=== PATIENT | female | born 1975 | race American Indian/Alaskan Native ===

== ENCOUNTER 2021-02-01 09:07 | Emergency (ER) | payer SELFPAY ==
[2021-02-01] MEDS ORDERED: IBUPROFEN 800 MG TAB PO ONE (09:24)
--- NOTE | 2021-02-01 09:24 | Emergency Department Report ---
- General Chief Complaint: Fever Stated Complaint: COUGH/BODY ACHES Time Seen by Provider: 02/01/21 09:19 Source: patient Mode of arrival: Ambulatory Limitations: No Limitations - History of Present Illness Initial Comments: 45-year-old female with a past medical history of diabetes and hypertension presents to the ER today with complaints of flulike symptoms. Patient states his symptoms started 3 days ago. She reports fever, highest measured temperature was 101.6, cough and generalized body aches as well as rhinorrhea nasal congestion. She states that she has been taking Tylenol for the fever. She last took Tylenol yesterday. She also took Mucinex today to help the cough. She states when the cough is bad she feels like she cannot catch her breath but otherwise no shortness of breath, wheezing, or chest pain. She states that she has been around her grandkids who had a cold this past weekend. She denies any GI or symptoms. She denies any heart disease or lung disease or tobacco use. MD Complaint: fever, cough, rhinorrhea, nasal congestion -: Gradual, days(s) (3) - Related Data Home Medications Medication Instructions Recorded Confirmed Last Taken Lisinopril/Hydrochlorothiazide 1 tab PO DAILY 08/18/17 08/18/17 08/17/17 [Zestoretic 20-25 mg] Previous Rx's Medication Instructions Recorded Last Taken Type Albuterol Mdi (or & Nicu Only) 2 puff IH QID PRN #8.5 gram 02/01/21 Unknown Rx [ProAir HFA Inhaler] Azithromycin [Zithromax Z-JANY] 250 mg PO DAILY #1 pack 02/01/21 Unknown Rx Benzonatate [Tessalon Perles] 100 mg PO Q8HR PRN #30 capsule 02/01/21 Unknown Rx Ibuprofen [Motrin] 600 mg PO Q8H PRN #30 tablet 02/01/21 Unknown Rx Allergies Allergy/AdvReac Type Severity Reaction Status Date / Time No Known Allergies Allergy Verified 02/01/21 09:14 ED Review of Systems ROS: Stated complaint: COUGH/BODY ACHES Other details as noted in HPI Comment: All other systems reviewed and negative Constitutional: fever ENT: congestion, other (Rhinorrhea). denies: ear pain, throat pain Respiratory: cough. denies: shortness of breath, SOB with exertion, SOB at rest, wheezing Cardiovascular: denies: chest pain Genitourinary: denies: urgency, dysuria, discharge Musculoskeletal: myalgia. denies: back pain, joint swelling, arthralgia Skin: denies: rash, change in color, change in hair/nails Neurological: denies: headache, weakness, numbness, paresthesias, confusion, abnormal gait, vertigo Psychiatric: denies: anxiety, depression, auditory hallucinations, visual hallucinations, homicidal thoughts, suicidal thoughts Hematological/Lymphatic: denies: easy bleeding, easy bruising ED Past Medical Hx - Past Medical History Hx Hypertension: Yes Hx Diabetes: Yes - Surgical History Past Surgical History?: No - Social History Smoking Status: Never Smoker Substance Use Type: None - Medications Home Medications: Home Medications Medication Instructions Recorded Confirmed Last Taken Type Lisinopril/Hydrochlorothiazide 1 tab PO DAILY 08/18/17 08/18/17 08/17/17 History [Zestoretic 20-25 mg] Albuterol Mdi (or & Nicu Only) 2 puff IH QID PRN #8.5 gram 02/01/21 Unknown Rx [ProAir HFA Inhaler] Azithromycin [Zithromax Z-JANY] 250 mg PO DAILY #1 pack 02/01/21 Unknown Rx Benzonatate [Tessalon Perles] 100 mg PO Q8HR PRN #30 capsule 02/01/21 Unknown Rx Ibuprofen [Motrin] 600 mg PO Q8H PRN #30 tablet 02/01/21 Unknown Rx ED Physical Exam - General Limitations: No Limitations General appearance: alert, in no apparent distress - Head Head exam: Present: atraumatic, normocephalic, normal inspection - Eye Eye exam: Present: normal appearance, PERRL, EOMI Pupils: Present: normal accommodation - ENT ENT exam: Present: normal exam, mucous membranes moist - Expanded ENT Exam Expanded TM/Canal exam: Effusion: Right TM, Left TM Mouth exam: Present: normal external inspection Throat exam: Positive: normal inspection - Neck Neck exam: Present: normal inspection, full ROM. Absent: meningismus, lymphadenopathy - Respiratory Respiratory exam: Present: normal lung sounds bilaterally. Absent: respiratory distress - Cardiovascular Cardiovascular Exam: Present: regular rate, normal rhythm, normal heart sounds - GI/Abdominal GI/Abdominal exam: Present: soft. Absent: distended, tenderness, guarding, rebound - Back Exam Back exam: Present: full ROM - Neurological Exam Neurological exam: Present: alert, oriented X3, CN II-XII intact, normal gait - Psychiatric Psychiatric exam: Present: normal affect, normal mood - Skin Skin exam: Present: intact ED Course Vital Signs 02/01/21 02/01/21 02/01/21 09:18 09:53 11:11 Temperature 99.9 F H Pulse Rate 104 H 91 H Respiratory 20 20 18 Rate Blood Pressure 179/82 Blood Pressure 149/71 [Left] O2 Sat by Pulse 94 96 Oximetry ED Medical Decision Making - Radiology Data Radiology results: report reviewed Patient: VERÓNICA RIVERA MR#: [id number] : 1975 Acct:[id number] Age/Sex: 45 / F ADM Date: 02/01/21 Loc: ED Attending Dr: Ordering Physician: JODY ALLRED Date of Service: 02/01/21 Procedure(s): XR chest routine 2V Accession Number(s): [id number] cc: JODY ALLRED Fluoro Time In Minutes: CHEST 2 VIEWS INDICATION / CLINICAL INFORMATION: cough/fever. COMPARISON: None available. FINDINGS: SUPPORT DEVICES: None. HEART / MEDIASTINUM: No significant abnormality. LUNGS / PLEURA: No significant pulmonary or pleural abnormality. No pneumothorax. ADDITIONAL FINDINGS: No significant additional findings. IMPRESSION: 1. No acute findings. Signer Name: Alvaro Krueger MD Signed: 02/01/2021 9:51 AM Workstation Name: [id number] Transcribed By: CW Dictated By: CAITLYN KRUEGER MD Electronically Authenticated By: CAITLYN KRUEGER MD Signed Date/Time: 02/01/21950 DD/ 0 TD/TT: - Medical Decision Making 1127: CXR shows nothing acute. Repeat VS show improvement and is stable. Patient currently is well-appearing, nontoxic and not in any acute pain or respiratory distress. She is neurologically intact and normal gait in the ER. She appears well-hydrated. Suspect viral illness/bronchitis at this time. Discussed x-ray results and suspected diagnosis with patient. I did recommend that she get an outpatient COVID-19 test. Discussed treatment plan with shima ent. She expressed understanding of instructions and agree with plan. Patient stable at time of discharge Critical care attestation.: If time is entered above; I have spent that time in minutes in the direct care of this critically ill patient, excluding procedure time. ED Disposition Clinical Impression: Acute bronchitis, Viral syndrome Disposition: DC-01 TO HOME OR SELFCARE Is pt being admited?: No Does the pt Need Aspirin: No Condition: Stable Instructions: Acute Bronchitis, Adult, [id number], Viral Illness, Adult, Acute Bronchitis (ED) Additional Instructions: Take the tessalon perles, Motrin, zpak and the albuterol MDI as prescribed. Recommend rest, and drink lots of fluids. Recommend outpatient COVID 19 testing. Follow up with PCP in 1 week. Return to ED if worse. Prescriptions: Ibuprofen [Motrin] 600 mg PO Q8H PRN #30 tablet PRN Reason: Pain/fever Albuterol Mdi (or & Nicu Only) [ProAir HFA Inhaler] 2 puff IH QID PRN #8.5 gram PRN Reason: Shortness Of Breath Benzonatate [Tessalon Perles] 100 mg PO Q8HR PRN #30 capsule PRN Reason: Cough Azithromycin [Zithromax Z-JANY] 250 mg PO DAILY #1 pack Referrals: Ethel HENSLEY MD [Primary Care Provider] - 3-5 Days Forms: Work/School Release Form(ED) Time of Disposition: 11:14
--- NOTE | 2021-02-01 09:56 | XRay Report ---
CHEST 2 VIEWS INDICATION / CLINICAL INFORMATION: cough/fever. COMPARISON: None available. FINDINGS: SUPPORT DEVICES: None. HEART / MEDIASTINUM: No significant abnormality. LUNGS / PLEURA: No significant pulmonary or pleural abnormality. No pneumothorax. ADDITIONAL FINDINGS: No significant additional findings. IMPRESSION: 1. No acute findings. Signer Name: Alvaro Krueger MD Signed: 02/01/2021 9:51 AM Workstation Name: [id number]
[2021-02-01 11:12] VITALS: BP 149/71
== END 2021-02-01 11:54 | disposition home or self-care (01) ==
LOC: ED 09:07
DX: J20.8 Acute bronchitis due to other specified organisms (principal); B34.9 Viral infection, unspecified; I10 Essential (primary) hypertension; E11.9 Type 2 diabetes mellitus without complications; Z79.899 Other long term (current) drug therapy
CPT/HCPCS: 71046; 99283

== ENCOUNTER 2021-12-24 20:38 | Emergency (ER) | payer SELFPAY ==
[2021-12-24] MEDS ORDERED: SODIUM CHLORIDE 0.9% 1000 ML 1,000 ML IV ONE (21:31)
--- NOTE | 2021-12-24 22:02 | Emergency Department Report ---
ED General Adult HPI - General Chief complaint: Hyperglycemia Stated complaint: high blood sugar Time Seen by Provider: 12/24/21 21:18 Source: patient Mode of arrival: Ambulatory Limitations: No Limitations - History of Present Illness Initial comments: 46-year-old -[place] female with history of hypertension, diabetes type 2, and chronic dental caries. Patient presents today for hyperglycemia states sugar was 450 at home 318 noted via Accu-Chek in triage today. Patient states she is taking clindamycin p.o. for dental abscess, 1 mixed with Metformin causes GI upset so she has held her Metformin for the past 3 days. Patient denies dizziness, lightheadedness, there is no shortness of breath, no chest pain. No fevers no chills. No dysuria frequency urgency or hematuria. Patient states intermittent nausea no vomiting. No cough, fever, or chills. Patient does have a primary care doctor. And will have dental extraction and 4 days. There is no obvious facial or gum swelling at this time. - Related Data Home Medications Medication Instructions Recorded Confirmed Last Taken Lisinopril/Hydrochlorothiazide 1 tab PO DAILY 08/18/17 08/18/17 08/17/17 [Zestoretic 20-25 mg] Previous Rx's Medication Instructions Recorded Last Taken Type Albuterol Mdi (or & Nicu Only) 2 puff IH QID PRN #8.5 gram 02/01/21 Unknown Rx [ProAir HFA Inhaler] Azithromycin [Zithromax Z-JANY] 250 mg PO DAILY #1 pack 02/01/21 Unknown Rx Benzonatate [Tessalon Perles] 100 mg PO Q8HR PRN #30 capsule 02/01/21 Unknown Rx Ibuprofen [Motrin] 600 mg PO Q8H PRN #30 tablet 02/01/21 Unknown Rx Lisinopril/Hydrochlorothiazide 1 tab PO QDAY #30 tab 12/25/21 Unknown Rx [Zestoretic 20-25 mg] metFORMIN [Glucophage] 500 mg PO BID #60 12/25/21 Unknown Rx Allergies Allergy/AdvReac Type Severity Reaction Status Date / Time No Known Allergies Allergy Verified 12/24/21 20:50 ED Review of Systems ROS: Stated complaint: high blood sugar Other details as noted in HPI Constitutional: denies: chills, fever Eyes: denies: eye pain, eye discharge, vision change ENT: dental pain. denies: ear pain, throat pain Respiratory: denies: cough, shortness of breath, wheezing Cardiovascular: as per HPI. denies: chest pain Endocrine: no symptoms reported Gastrointestinal: nausea. denies: abdominal pain, vomiting, diarrhea Genitourinary: denies: urgency, dysuria, frequency, hematuria, discharge Musculoskeletal: denies: back pain, joint swelling, arthralgia Skin: denies: rash, lesions Neurological: denies: headache, weakness, paresthesias, vertigo Psychiatric: denies: anxiety, depression Hematological/Lymphatic: denies: easy bleeding, easy bruising ED Past Medical Hx - Past Medical History Previous Medical History?: Yes Hx Hypertension: Yes Hx Diabetes: Yes - Surgical History Past Surgical History?: No - Social History Smoking Status: Never Smoker Substance Use Type: None - Medications Home Medications: Home Medications Medication Instructions Recorded Confirmed Last Taken Type Lisinopril/Hydrochlorothiazide 1 tab PO DAILY 08/18/17 08/18/17 08/17/17 History [Zestoretic 20-25 mg] Albuterol Mdi (or & Nicu Only) 2 puff IH QID PRN #8.5 gram 02/01/21 Unknown Rx [ProAir HFA Inhaler] Azithromycin [Zithromax Z-JANY] 250 mg PO DAILY #1 pack 02/01/21 Unknown Rx Benzonatate [Tessalon Perles] 100 mg PO Q8HR PRN #30 capsule 02/01/21 Unknown Rx Ibuprofen [Motrin] 600 mg PO Q8H PRN #30 tablet 02/01/21 Unknown Rx Lisinopril/Hydrochlorothiazide 1 tab PO QDAY #30 tab 12/25/21 Unknown Rx [Zestoretic 20-25 mg] metFORMIN [Glucophage] 500 mg PO BID #60 12/25/21 Unknown Rx ED Physical Exam - General Limitations: No Limitations General appearance: alert, in no apparent distress - Head Head exam: Present: atraumatic, normocephalic - Eye Eye exam: Present: normal appearance, EOMI Pupils: Present: normal accommodation - ENT ENT exam: Present: normal orophraynx, mucous membranes moist - Neck Neck exam: Present: normal inspection, full ROM. Absent: tenderness, lymphadenopathy, thyromegaly - Respiratory Respiratory exam: Present: normal lung sounds bilaterally. Absent: respiratory distress, wheezes, rales, rhonchi, stridor, chest wall tenderness - Cardiovascular Cardiovascular Exam: Present: regular rate, normal rhythm, normal heart sounds. Absent: systolic murmur, diastolic murmur, rubs, gallop - GI/Abdominal GI/Abdominal exam: Present: soft, normal bowel sounds. Absent: distended, tenderness, guarding, rebound, rigid, bruit, hernia - Rectal Rectal exam: Present: deferred - Extremities Exam Extremities exam: Present: normal inspection, full ROM, normal capillary refill. Absent: tenderness - Back Exam Back exam: Present: normal inspection, full ROM. Absent: CVA tenderness (R), CVA tenderness (L) - Neurological Exam Neurological exam: Present: alert, oriented X3, CN II-XII intact, normal gait - Psychiatric Psychiatric exam: Present: normal affect, normal mood - Skin Skin exam: Present: warm, dry, intact, normal color. Absent: rash ED Course Vital Signs 12/24/21 20:47 Temperature 97.6 F Pulse Rate 78 Respiratory 18 Rate Blood Pressure 190/75 [Left] O2 Sat by Pulse 98 Oximetry ED Medical Decision Making - Lab Data Result diagrams: 12/24/21 21:43 12/24/21 21:43 Labs 12/24/21 12/24/21 12/24/21 20:43 21:43 21:43 WBC 11.5 H RBC 4.58 Hgb 13.4 Hct 39.2 MCV 86 MCH 29 MCHC 34 RDW 13.6 Plt Count 272 Lymph # (Auto) Charge Account Clerk VBG pH Sodium 135 L Potassium 4.8 Chloride 96.9 L Carbon Dioxide 24 Anion Gap 19 BUN 13 Creatinine 0.5 L Estimated GFR > 60 BUN/Creatinine Ratio 26 Glucose 316 H POC Glucose 318 H Calcium 9.7 Total Bilirubin 0.20 AST 77 H ALT 73 H Alkaline Phosphatase 125 Total Protein 8.1 Albumin 4.4 Albumin/Globulin Ratio 1.2 12/24/21 21:43 WBC RBC Hgb Hct MCV MCH MCHC RDW Plt Count Lymph # (Auto) VBG pH 7.455 H Sodium Potassium Chloride Carbon Dioxide Anion Gap BUN Creatinine Estimated GFR BUN/Creatinine Ratio Glucose POC Glucose Calcium Total Bilirubin AST ALT Alkaline Phosphatase Total Protein Albumin Albumin/Globulin Ratio - EKG Data EKG shows normal: sinus rhythm, axis, intervals, QRS complexes, ST-T waves Rate: normal - EKG Data Interpretation: normal EKG (NS NSTEMI interp by ed attending ) - Medical Decision Making Labs noted as above glucose 317 improved after IV fluids. Patient given Metformin complete clindamycin as prescribed. Patient will follow primary care doctor tomorrow. Is agreement and understanding with discharge plan. Patient will be DC'd home in stable condition at this time. Critical care attestation.: If time is entered above; I have spent that time in minutes in the direct care of this critically ill patient, excluding procedure time. ED Disposition Clinical Impression: Hyperglycemia Disposition: HOME / SELF CARE / HOMELESS Is pt being admited?: No Does the pt Need Aspirin: No Condition: Stable Instructions: Hyperglycemia, Metformin tablets Additional Instructions: Take medications as prescribed, follow-up with your doctor in 2 to 3 days. Continue to hydrate as directed. Return to emergency department should symptoms worsen. Prescriptions: metFORMIN [Glucophage] 500 mg PO BID #60 Lisinopril/Hydrochlorothiazide [Zestoretic 20-25 mg] 1 tab PO QDAY #30 tab Referrals: PRIMARY MD CLINT [Primary Care Provider] - 3-5 Days LALA CASTAÑEDA MD [Staff Physician] - 3-5 Days Forms: Work/School Release Form(ED) Time of Disposition: 00:21
[2021-12-24 22:25] LABS: Hematocrit 39.2 % (30.3-42.9); Hemoglobin 13.4 gm/dl (10.1-14.3); Mean Corpuscular HGB Conc 34 % (30-34); Mean Corpuscular Volume 86 fl (79-97); Platelet Count 272 K/mm3 (140-440); Red Blood Count 4.58 M/mm3 (3.65-5.03); Red Cell Distribution Width 13.6 % (13.2-15.2)
[2021-12-24 22:30] LABS: Alanine Aminotransferase 73 units/L (7-56); Albumin 4.4 g/dL (3.9-5); Blood Urea Nitrogen 13 mg/dL (7-17); Calcium 9.7 mg/dL (8.4-10.2); Hemolysis Index 158
[2021-12-24 22:43] LABS: BUN/Creatinine Ratio 26
[2021-12-24 23:43] LABS: Basophils % (Manual) 0 % (0.0-1.8); Eosinophils % (Manual) 0 % (0.0-4.3); RBC Morphology Normal; Total Cells Counted 100
[2021-12-25 00:58] VITALS: BP 176/72
--- NOTE | 2021-12-25 10:35 | Electrocardiograph Report ---
[facility] Test Date: 2021-12-24 Test Time: 20:55:56 Pat Name: VERÓNICA RIVERA Department: Room: Gender: F Roofer Apprentice: VICKI : 1975 Requested By: IRVIN HAYNES Order Number: [id number] Reading MD: Jasvir Saab Measurements Intervals Isabella Rate: 83 P: 34 VA: 133 QRS: 1 QRSD: 92 T: -4 QT: 372 QTc: 438 Interpretive Statements Sinus rhythm CANNOT RULE OUT Inferior infarct, old LVH No previous ECG available for comparison Electronically Signed On 12-25-2021 10:34:14 EDT by Jasvir Saab
== END 2021-12-25 01:01 | disposition home or self-care (01) ==
LOC: ED 20:38
DX: E11.65 Type 2 diabetes mellitus with hyperglycemia (principal); I10 Essential (primary) hypertension; E11.8 Type 2 diabetes mellitus with unspecified complications
CPT/HCPCS: 36415; 80053; 82805; 82962; 85007; 85025; 93005; 96360; 99283; J7030; Q0162